=== PATIENT | female | born 1935 | race Caucasian/White ===

== ENCOUNTER 2016-09-03 05:16 | Day surgery (SDC) | payer OTHER ==
[2016-09-03] VITALS (12 sets, daily range): BP systolic 129–164; BP diastolic 54–72; PULSE 52–67; RESP 14–19; Ht 147.3 cm; Wt 83.0 kg
[~2016-09-03] VITALS: Ht 147.3 cm; Wt 83.0 kg
[2016-09-03] MEDS ORDERED: LACTATED RINGER'S 1,000 ML IV* SCH (06:00)
[2016-09-03] MEDS ORDERED: PRAV40TA76 PO (06:41)
[2016-09-03] MEDS ORDERED: GLIP5TAB13 PO (06:41)
[2016-09-03] MEDS ORDERED: PARO-37 PO (06:41)
[2016-09-03] MEDS ORDERED: FERR325T5 PO (06:41)
[2016-09-03] MEDS ORDERED: LOSA50TA6 PO (06:41)
[2016-09-03] MEDS ORDERED: CARV3.1260 PO (06:41)
[2016-09-03] MEDS ORDERED: GABA300C16 PO (06:41)
[2016-09-03] MEDS ORDERED: HYDR25TA6 PO (06:41)
[2016-09-03] MEDS ORDERED: FENO160T13 PO (06:41)
[2016-09-03] MEDS ORDERED: GLIP-95 PO (06:41)
[2016-09-03] MEDS ORDERED: CEFAZOLIN 2 GM/50 ML (PMX) 50 ML IVPB ONE (07:00)
[2016-09-03] MEDS ORDERED: POLYMYXIN/BACITRACIN 1L IRRIG ONE (07:02)
[2016-09-03] MEDS ORDERED: MUPIROCIN 2% 15 GM CR ONE (07:05)
[2016-09-03] MEDS ORDERED: GENTAMICIN 80 MG INJ ONE (07:05)
[2016-09-03] MEDS ORDERED: BUPIVACAINE 0.25% (MPF) 30 ML INJ ONE (07:05)
[2016-09-03] MEDS ORDERED: LIDOCAINE 1%/EPI 30 ML INJ ONE (07:05)
--- NOTE | 2016-09-03 07:13 | HPN ---
Date/Time of Note Date/Time of Note DATE: 09/03/16 TIME: 07:13 Interval H&P Admission Note Pt. seen H&P reviewed: No system changes JAMES MUNROE MD Sep 03, 2016 07:13
[2016-09-03] MEDS ORDERED: FENTAnyl 50 MCG/ML VIAL ONE (07:29)
[2016-09-03] MEDS ORDERED: MIDAZOLAM 1 MG/ML 2 ML INJ ONE (07:29)
[2016-09-03] MEDS ORDERED: CEFAZOLIN 1 GM INJ ONE (07:49)
[2016-09-03] MEDS ORDERED: PROPOFOL 20 ML ONE (07:49)
[2016-09-03] MEDS ORDERED: ONDANSETRON 4 MG INJ IV PRN (08:30)
[2016-09-03] MEDS ORDERED: EPHEDrine SULFATE 50 MG/5 ML SYG IV PRN (08:30)
[2016-09-03] MEDS ORDERED: hydrALAzine 20 MG INJ IV PRN (08:30)
[2016-09-03] MEDS ORDERED: HYDROmorphONE (0.2 MG/ML) 10ML SYG IV PRN (08:30)
[2016-09-03] MEDS ORDERED: DIPHENHYDRAMINE 50 MG INJ IV PRN (08:30)
--- NOTE | 2016-09-03 09:19 | OPR ---
DATE OF OPERATION: 09/03/2016 PREOPERATIVE DIAGNOSIS: Basal cell carcinoma, left eyebrow, biopsy proven. POSTOPERATIVE DIAGNOSIS: Basal cell carcinoma, left eyebrow, biopsy proven. OPERATION PERFORMED: Wide excision of basal cell carcinoma, left eyebrow (2.7 cm x 1.6 cm) with fro santino section margin control, fasciocutaneous flap reconstruction and application of full-thickness sk in graft from left base of neck. SURGEON: James Fragoso MD MELTER SUPERVISOR: None. ANESTHESIA: Monitored anesthesia care with intravenous sedation. Local anesthetic infiltration for pain control, a total of 25 mL of 0.5% lidocaine, 0.125% Marcaine and 1:200,000 epinephrine solution. ANESTHESIOLOGIST: Dr. Slater ESTIMATED BLOOD LOSS: 3 mL. DRAINS: None. DRESSING: Mastisol, Steri-Strip, Bactroban cream, dry sterile dressing, and Tegaderm. SPECIMEN: Basal cell carcinoma, left eyebrow, marked at 12 o'clock (superior), handed to Dr. Hanh Davis MD for frozen section and permanent slides. FINDINGS: Report of frozen section per Dr. Hanh Davis MD, pathologist, showed all margins clear of tumor. OPERATIVE PROCEDURE: The patient received 2 grams of intravenous Ancef as preoperative antibiotic. Also in the holding area with the patient in the sitting position, markings were made for the plann ed procedure. In the operating room with the patient in the supine position, following adequate mon itoring and induction of adequate level of monitored anesthesia care with intravenous sedation by Dr Kathy Slater, anesthesiologist, the area of excision, as well as donor site, over the left base of neck were injected with an adequate amount of local anesthetic solution as marked. Following routine pre p and drape and surgical pause, the operation was started by wide excision of the tumor from the mid portion of the left eyebrow as marked. This specimen was marked at the 12 o'clock position, which represented the most cephalad segment of the specimen, with a cut and ink and was handed to Dr. Demetrius Davis, pathologist, for frozen section and permanent slides. Following report of frozen section the operative area was irrigated using a copious amount of triple antibiotic solution. Primary inte ntion was noted to cause significant deformity and disruption of the left eyebrow, as well as moveme nt of the eyebrow, in comparison to the right side. Therefore, a double advancement fasciocutaneous flap was elevated to successfully reduce the size of the defect to less than half of its original s ize using interrupted 4-0 and 5-0 Monocryl sutures. Suturing was performed in a sparing fashion to preserve the hair follicles of the eyebrow. The remainder of the defect was successfully reconstruc jakob using application of a full-thickness skin graft that was harvested from the left base of neck a nd was inset using 5-0 Monocryl sutures. A tie-over dressing was applied over the skin graft, follo wed by the dressings as mentioned above. All counts were checked and reported to be correct prior t o closures. The patient tolerated this procedure very well and left the operating room to the [facility] room awake, stable, and in comfortable and satisfactory condition. Dictated By: JAMES PARTIDA/VIVIANA Conf#: [id number] DID#: [id number]
[2016-09-03] MEDS ORDERED: OXYCODONE/ACETAMINOPHEN (5/325) TAB PO PRN (14:00)
== END 2016-09-03 11:12 | disposition home or self-care (01) ==
LOC: SDS 05:16
PROVIDERS: ATTEND Plastic Surgery
DX: L57.8 Other skin changes due to chronic exposure to nonionizing radiation (principal); Z85.828 Personal history of other malignant neoplasm of skin; I25.10 Atherosclerotic heart disease of native coronary artery without angina pectoris; E11.9 Type 2 diabetes mellitus without complications; E78.5 Hyperlipidemia, unspecified; E66.01 Morbid (severe) obesity due to excess calories; Z68.38 Body mass index [BMI] 38.0-38.9, adult; I10 Essential (primary) hypertension
CPT/HCPCS: 14040; 82962; 88305; J0690; J1580; J2250; J3010